=== PATIENT | female | born 1975 | race Caucasian/White ===

== ENCOUNTER 2019-03-13 10:21 | Emergency (ER) | payer OTHER ==
[~2019-03-13 10:21] MED LIST: AMITR PO; BIOTPOW17 XX; CITA-36 PO; CITA-73 OR; DIVA500T53 PO; HYDR12.55 OR; LEVE100012 PO; LISI-275 OR; MULTTAB99 GT; NITR100C6 OR; NORTREL; PSYLCAP5 OR
[2019-03-13] MEDS ORDERED: SODIUM CHLORIDE 0.9% 1,000 ML IVB ONE (10:30)
[2019-03-13 11:00] LABS: Basophils # (auto) 0 uL; Basophils % (auto) 0.3 % (0.0-2.0); Eosinophils # (auto) 0 uL; Eosinophils % (auto) 0.6 % (0.0-7.0); Hematocrit 33.7 % (36.0-46.0); Hemoglobin 11.4 g/dL (12.2-16.2); Lymphocytes % (auto) 18.5 % (10.0-50.0); Mean Corpuscular Hemoglobin 32.3 pg (28.0-32.0); Mean Corpuscular Hgb Conc. 33.8 g/dL (32.0-36.0); Mean Corpuscular Volume 95.5 fL (80.0-100.0); Monocytes # (auto) 0.5 uL; Monocytes % (auto) 9.1 % (0.0-12.0); Neutrophils # (auto) 3.7 uL; Neutrophils % (auto) 71.5 % (37.0-80.0); Platelet Count (auto) 127 10^3/uL (140-450); Red Blood Cells 3.53 10^6/uL (4.0-5.20); Red Cell Distribution Width 12.9 % (11.8-14.3); White Blood Cell 5.2 10^3/uL (4.4-10.8)
[2019-03-13 11:38] LABS: Potassium 3.2 mmol/L (3.5-5.1)
[2019-03-13 11:46] LABS: Albumin 2.7 g/dL (3.4-5.0); BUN/Creatinine Ratio 45.2; Bilirubin, Total 0.3 mg/dL (0.2-1.0); Calcium 8.4 mg/dL (8.5-10.1); Total Protein 6.3 g/dL (6.4-8.2)
[2019-03-13] MEDS ORDERED: POTASSIUM CHL 20MEQ/100ML 100 ML IV ONE (12:15)
[2019-03-13 18:25] VITALS: BP 123/85
== END 2019-03-13 18:34 | disposition short-term general hospital (02) ==
LOC: ER 10:21 → EDBD 10:21 → ER 18:34
DX: T42.6X1A Poisoning by other antiepileptic and sedative-hypnotic drugs, accidental (unintentional), initial encounter (principal); R27.0 Ataxia, unspecified; F41.9 Anxiety disorder, unspecified; E87.6 Hypokalemia; F32.9 Major depressive disorder, single episode, unspecified; J45.909 Unspecified asthma, uncomplicated; I10 Essential (primary) hypertension; Z88.0 Allergy status to penicillin; Z88.2 Allergy status to sulfonamides; Z88.8 Allergy status to other drugs, medicaments and biological substances; Z79.899 Other long term (current) drug therapy; Y92.89 Other specified places as the place of occurrence of the external cause
CPT/HCPCS: 36415; 70450; 80053; 80164; 83735; 85025; 93005; 94761; 96365; 99291; J3480; J7040